=== PATIENT | male | born 1980 | race Two or more races ===

== ENCOUNTER 2020-04-02 02:13 | Emergency (ER) | payer MEDICAID ==
[~2020-04-02] VITALS: Ht 167.6 cm; Wt 91.0 kg
[2020-04-02] MEDS ORDERED: SODIUM CHLORIDE 0.9% 1,000 ML IV ONE (02:45)
[2020-04-02 03:04] LABS: HEMATOCRIT. 39.6 % (42.0-52.0); HEMOGLOBIN. 13.5 g/dL (14.0-18.0); MEAN CORPUSCULAR HEMOGLOBIN 29.3 pg (28.0-32.0); MEAN CORPUSCULAR VOLUME 86.1 fL (80.0-94.0); PLATELET 263 x1000/uL (130-400); RED CELL DISTRIBUTION WIDTH 16.4 % (11.6-14.6)
[2020-04-02 03:07] LABS: CHLORIDE 101 mEq/L (98-107)
[2020-04-02 03:11] LABS: ETHANOL BLOOD 39 mg/dL
[2020-04-02 03:42] LABS: CLARITY URINE CLEAR (CLEAR); COLOR URINE YELLOW (YELLOW); KETONES URINE NEGATIVE (NEGATIVE); LEUKOCYTE ESTERASE URINE NEGATIVE (NEGATIVE); NITRITE URINE NEGATIVE (NEGATIVE); OCCULT BLOOD URINE NEGATIVE (NEGATIVE); PROTEIN URINE 1+ (NEGATIVE); SPECIFIC GRAVITY URINE 1.009 (1.005-1.030); UROBILINOGEN URINE 0.2 E.U./dL (0.2-1.0)
[2020-04-02 03:52] LABS: *AMPHETAMINES SCREEN URINE PRESUMTIVE POSITIVE (NEGATIVE); *BARBITURATES SCREEN URINE NEGATIVE (NEGATIVE); *BENZODIAZEPINES SCREEN URINE PRESUMTIVE POSITIVE (NEGATIVE); *COCAINE SCREEN URINE NEGATIVE (NEGATIVE); CANNABINOID URINE SCREEN NEGATIVE (NEGATIVE); METHADONE URINE SCREEN NEGATIVE (NEGATIVE); OPIATES URINE SCREEN NEGATIVE (NEGATIVE); PHENCYCLIDINE URINE SCREEN NEGATIVE (NEGATIVE)
[2020-04-02 05:52] LABS: PLATELET ESTIMATE NORMAL
[2020-04-02 08:26] VITALS: BP 142/86
== END 2020-04-02 08:27 | disposition home or self-care (01) ==
LOC: ER 02:13 → EDBD 02:13 → ER 08:27
DX: F19.10 Other psychoactive substance abuse, uncomplicated (principal); G93.40 Encephalopathy, unspecified; R79.89 Other specified abnormal findings of blood chemistry
CPT/HCPCS: 36415; 70450; 80053; 80305; 80320; 81003; 85025; 93005; 96360; 96361; 99285; J7030; G0480

== ENCOUNTER 2020-06-22 19:31 | Emergency (ER) | payer MEDICAID ==
[~2020-06-22] VITALS: Ht 172.7 cm; Wt 84.0 kg
[2020-06-22] MEDS ORDERED: LORAZEPAM 2MG/ML CPJ IM STA (19:53)
[2020-06-22] MEDS ORDERED: HALOPERIDOL LACTATE 5MG/ML VIAL IM STA (19:53)
[2020-06-22] MEDS ORDERED: FENTANYL CITRATE/PF 500 MCG in SODIUM CHLORIDE 0.9% 40 ML IV PRN (20:15)
[2020-06-22 20:56] LABS: CHLORIDE 105 mEq/L (98-107); HEMATOCRIT. 40.9 % (42.0-52.0); HEMOGLOBIN. 13.4 g/dL (14.0-18.0); MEAN CORPUSCULAR HEMOGLOBIN 29.2 pg (28.0-32.0); MEAN CORPUSCULAR VOLUME 88.7 fL (80.0-94.0); MEAN PLATELET VOLUME 8.1 fl (7.4-10.4); PLATELET 274 x1000/uL (130-400); RED BLOOD CELL COUNT 4.61 mill/uL (4.7-6.1); RED CELL DISTRIBUTION WIDTH 15.2 % (11.6-14.6)
[2020-06-22 21:00] LABS: ETHANOL BLOOD 70 mg/dL
[2020-06-22 21:22] LABS: PLATELET ESTIMATE NORMAL
[2020-06-22 21:53] LABS: CLARITY URINE CLEAR (CLEAR); COLOR URINE YELLOW (YELLOW); KETONES URINE TRACE (NEGATIVE); LEUKOCYTE ESTERASE URINE NEGATIVE (NEGATIVE); NITRITE URINE NEGATIVE (NEGATIVE); OCCULT BLOOD URINE 2+ (NEGATIVE); PROTEIN URINE 1+ (NEGATIVE); SPECIFIC GRAVITY URINE 1.013 (1.005-1.030); UROBILINOGEN URINE 0.2 E.U./dL (0.2-1.0)
[2020-06-22 22:09] LABS: *AMPHETAMINES SCREEN URINE PRESUMTIVE POSITIVE (NEGATIVE); *BARBITURATES SCREEN URINE NEGATIVE (NEGATIVE); *BENZODIAZEPINES SCREEN URINE NEGATIVE (NEGATIVE); *COCAINE SCREEN URINE NEGATIVE (NEGATIVE); CANNABINOID URINE SCREEN NEGATIVE (NEGATIVE); METHADONE URINE SCREEN NEGATIVE (NEGATIVE); OPIATES URINE SCREEN NEGATIVE (NEGATIVE); PHENCYCLIDINE URINE SCREEN NEGATIVE (NEGATIVE)
[2020-06-23 00:30] VITALS: BP 134/77
== END 2020-06-23 02:00 | disposition home or self-care (01) ==
LOC: ER 19:31
DX: F10.129 Alcohol abuse with intoxication, unspecified (principal); F17.200 Nicotine dependence, unspecified, uncomplicated; R00.0 Tachycardia, unspecified; Y90.3 Blood alcohol level of 60-79 mg/100 ml
CPT/HCPCS: 36415; 71045; 80053; 80305; 80307; 80320; 80329; 81003; 82962; 85025; 93005; 96372; 99285; J1630; J2060; Z7610; G0480